=== PATIENT | female | born 1995 | race Caucasian/White ===

== ENCOUNTER 2020-06-06 20:43 | Emergency (ER) | payer MEDICARE, MEDICAID ==
[~2020-06-06] VITALS: Ht 165.1 cm; Wt 70.5 kg
[~2020-06-06 20:43] MED LIST: CLON-527 PO
[2020-06-06] MEDS ORDERED: normal saline 1000ML IV soln IVB ONE (21:20)
[2020-06-06] MEDS ORDERED: magnesium 2GM in 50ml NS 50 ML IV ONE (21:20)
[2020-06-06 22:03] LABS: CLARITY,URINE CLEAR (Clear); COLOR,URINE YELLOW (Yellow); GLUCOSE, URINE NEGATIVE (Neg); KETONES,URINE NEGATIVE (Neg); LEUKOCYTE ESTERASE ,URINE TRACE (Neg); NITRITES, URINE NEGATIVE (Neg); OCCULT BLOOD,URINE NEGATIVE (Neg); PROTEIN,URINE NEGATIVE (Neg); UROBILINOGEN,URINE 0.2 E.U/dL (0.2-1.0)
[2020-06-06 22:06] LABS: BASOPHILS # (AUTO) 0.1 X10'3 (0-0.2); BASOPHILS % (AUTO) 0.7 % (0-1); EOSINOPHILS % (AUTO) 0.4 % (0-6); HEMATOCRIT 41.3 % (35.0-45.0); HEMOGLOBIN 14.2 g/dl (12.0-16.0); LYMPHOCYTES # (AUTO) 2.3 X10'3 (1.1-4.8); LYMPHOCYTES % (AUTO) 28.5 % (21-51); MEAN CORPUSCULAR HEMOGLOBIN 32.2 PG (27.0-31.0); MEAN CORPUSCULAR HGB CONC 34.5 g/dL (33.0-36.5); MEAN CORPUSCULAR VOLUME 93.2 FL (78-98); MEAN PLATELET VOLUME 7.2 FL (7.4-10.4); MONOCYTES # (AUTO) 0.6 X10'3 (0-0.9); NEUTROPHILS # (AUTO) 5.2 X10'3 (1.8-7.7); NEUTROPHILS % (AUTO) 63.4 % (42-75); PLATELET COUNT 395 X10'3 (140-440); RED BLOOD COUNT 4.43 X10'6 (4.20-5.60); RED CELL DISTRIBUTION WIDTH 12.8 % (11.5-14.5); WHITE BLOOD COUNT 8.2 X10'3 (4.5-11.0)
[2020-06-06 22:09] LABS: URINE AMPHETAMINE SCREEN NEGATIVE (Neg); URINE BARBITUATE SCREEN NEGATIVE (Neg); URINE BENZODIAZEPINES SCREEN NEGATIVE (Neg); URINE CANNABINOID SCREEN NEGATIVE (Neg); URINE COCAINE SCREEN NEGATIVE (Neg); URINE METHADONE SCREEN NEGATIVE (Neg); URINE OPIATE SCREEN NEGATIVE (Neg); URINE PHENCYCLIDINE SCREEN NEGATIVE (Neg)
[2020-06-06 22:10] LABS: UA COLLECTION TYPE NON-SPECIFIED
[2020-06-06 22:13] LABS: WBC,URINE 0-4 /HPF (0-4)
[2020-06-06 22:14] LABS: BACTERIA,URINE 2+ /HPF (Neg); RBC,URINE NONE SEEN /HPF (0-2); SQUAMOUS EPITHELIAL CELL,UR MANY /LPF (FEW)
--- NOTE | 2020-06-06 22:16 | NUR ---
PTS FATHER NOW AT BEDSIDE. REPORTS WHEN THEY FOUND HER SHE WAS LYING FACE DOWN ON THE CARPET AND IN A TWISTED CLINCHED POSITION AND HE TURNED HER OVER. PT REPORTS SHE HAS NOT TAKEN HER EFFEXOR IN OVER A WEEKS, FETHER REPORTS HX OF HASHIMOTOS SIDEASE. HAS NOT TAKEN HER THYROID MEDS IS 5 DAYS AND HAS NOT TAKEN ZYPREXA IN 1-1.5 MONTHS. PT IS ANSWERING QUESTIONS APPROPRIATELY. FATHER REPORTS SHE HAS A SEIZURE DISORDER AND WAS BEING TREATED BY DR. SANTIAGO, NEUROLOGY, BUT HAS NOT BEEN SEEN BY NEUROLOGY SINCE THIS MD STOPPED PRACTICING A FEW YRS AGO. DOES NOT TAKE CURRENT SEIQURE MEDS. CURRENT VSS. PT LYING ON THE GURNEY AND NODDING HER HEAD CONINUOUSLY.
[2020-06-06 22:22] LABS: ALANINE AMINOTRANSFERASE 32 U/L (12-78); ALBUMIN 4.1 G/DL (3.4-5.0); ALBUMIN/GLOBULIN RATIO 1.1 (1.1-1.5); ALKALINE PHOSPHATASE 85 IU/L (46-116); ANION GAP 10 (8-16); ASPARTATE AMINO TRANSFERASE 22 U/L (10-37); BILIRUBIN,TOTAL 0.4 MG/DL (0.1-1.0); BLOOD UREA NITROGEN 6 MG/DL (7-18); BUN/CREATININE RATIO 7.6 (6.6-38.0); CALCIUM 9.5 MG/DL (8.5-10.1); CHLORIDE 105 MMOL/L (99-107); CREATININE 0.79 MG/DL (0.40-0.90); GLUCOSE 96 MG/DL (70-104); POTASSIUM 3.5 MMOL/L (3.5-5.1); SODIUM 140 MMOL/L (135-145); TOTAL CARBON DIOXIDE 24.6 MMOL/L (24-32); TOTAL PROTEIN 7.9 G/DL (6.4-8.2); eGFR 89 ML/MIN
[2020-06-06 22:23] LABS: CREATINE KINASE 224 U/L (26-192); ETHANOL 0.191 GM/DL (0.0-0.010)
[2020-06-06 23:03] LABS: MAGNESIUM 2.3 MG/DL (1.5-2.4)
[2020-06-07 00:16] VITALS: BP 100/64
== END 2020-06-07 | disposition home or self-care (01) ==
LOC: ER 20:43
DX: F10.129 Alcohol abuse with intoxication, unspecified (principal); G43.909 Migraine, unspecified, not intractable, without status migrainosus; E03.9 Hypothyroidism, unspecified; F32.9 Major depressive disorder, single episode, unspecified; Z86.69 Personal history of other diseases of the nervous system and sense organs; Z88.0 Allergy status to penicillin; Z91.012 Allergy to eggs; Z91.011 Allergy to milk products; Z91.010 Allergy to peanuts; Z91.018 Allergy to other foods; Z79.899 Other long term (current) drug therapy; Y90.0 Blood alcohol level of less than 20 mg/100 ml
CPT/HCPCS: 36415; 71045; 80053; 80305; 80320; 81001; 82550; 82948; 83735; 85025; 93005; 99285; J7030; 96360

== ENCOUNTER 2020-11-02 22:48 | Emergency (ER) | payer MEDICARE, MEDICAID ==
[~2020-11-02] VITALS: Ht 157.5 cm; Wt 71.4 kg
[2020-11-02] MEDS ORDERED: BENZ0.5T43 PO (23:16)
[2020-11-02 23:38] LABS: BASOPHILS # (AUTO) 0.2 X10'3 (0-0.2); BASOPHILS % (AUTO) 1.4 % (0-1); EOSINOPHILS % (AUTO) 0.2 % (0-6); HEMATOCRIT 37.4 % (35.0-45.0); HEMOGLOBIN 12.8 g/dl (12.0-16.0); LYMPHOCYTES # (AUTO) 1.7 X10'3 (1.1-4.8); LYMPHOCYTES % (AUTO) 15.8 % (21-51); MEAN CORPUSCULAR HEMOGLOBIN 31.9 PG (27.0-31.0); MEAN CORPUSCULAR HGB CONC 34.2 g/dL (33.0-36.5); MEAN CORPUSCULAR VOLUME 93.3 FL (78-98); MEAN PLATELET VOLUME 7.4 FL (7.4-10.4); MONOCYTES # (AUTO) 0.9 X10'3 (0-0.9); MONOCYTES % (AUTO) 7.8 % (2-12); NEUTROPHILS # (AUTO) 8.3 X10'3 (1.8-7.7); NEUTROPHILS % (AUTO) 74.8 % (42-75); PLATELET COUNT 394 X10'3 (140-440); RED BLOOD COUNT 4.01 X10'6 (4.20-5.60); RED CELL DISTRIBUTION WIDTH 12.1 % (11.5-14.5)
[2020-11-02 23:53] LABS: ALANINE AMINOTRANSFERASE 18 U/L (12-78); ALBUMIN 4.1 G/DL (3.4-5.0); ALBUMIN/GLOBULIN RATIO 1.4 (1.1-1.5); ALKALINE PHOSPHATASE 60 IU/L (46-116); ANION GAP 10 (8-16); ASPARTATE AMINO TRANSFERASE 21 U/L (10-37); BILIRUBIN,TOTAL 0.5 MG/DL (0.1-1.0); BLOOD UREA NITROGEN 5 MG/DL (7-18); BUN/CREATININE RATIO 5.9 (6.6-38.0); CALCIUM 8.8 MG/DL (8.5-10.1); CHLORIDE 103 MMOL/L (99-107); CREATININE 0.85 MG/DL (0.40-0.90); GLUCOSE 104 MG/DL (70-104); SODIUM 137 MMOL/L (135-145); TOTAL CARBON DIOXIDE 23.8 MMOL/L (24-32); TOTAL PROTEIN 7.1 G/DL (6.4-8.2); eGFR 81 ML/MIN
--- NOTE | 2020-11-02 23:54 | NUR ---
Patient arrived in overflow from triage. Pt has flat affect and is very slow to answer questions. 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 Pt also stated that she did not want her medical information or condition discussed with her parents. Pt was cooperative with changing clothes to scrubs and having her belongings taken and stored.
[2020-11-03] MEDS ORDERED: potassium Cl 20 mEq SR tablet PO ONE (00:10)
[2020-11-03] MEDS ORDERED: magnesium oxide 400mg tablet PO ONE (00:20)
--- NOTE | 2020-11-03 03:29 | NUR ---
Pt is up, walking slowly and quietly around her bed. Often she stops and stares at the wall.
[2020-11-03] MEDS ORDERED: diphenhydrAMINE 25mg capsule PO ONE (06:05)
[2020-11-03] MEDS ORDERED: OLANZapine 2.5MG tablet PO ONE (06:05)
[2020-11-03] MEDS ORDERED: OLANZapine 2.5MG tablet PO SCH (06:05)
[2020-11-03] MEDS ORDERED: OLANZAPINE 5 MG TABLET PO ONE (06:06)
[2020-11-03 06:18] LABS: URINE HCG NEGATIVE (NEG)
[2020-11-03 06:31] LABS: URINE AMPHETAMINE SCREEN NEGATIVE (Neg); URINE BARBITUATE SCREEN NEGATIVE (Neg); URINE BENZODIAZEPINES SCREEN NEGATIVE (Neg); URINE CANNABINOID SCREEN NEGATIVE (Neg); URINE COCAINE SCREEN NEGATIVE (Neg); URINE METHADONE SCREEN NEGATIVE (Neg); URINE OPIATE SCREEN NEGATIVE (Neg); URINE PHENCYCLIDINE SCREEN NEGATIVE (Neg)
[2020-11-03 06:44] LABS: CLARITY,URINE SLIGHTLY CLOUDY (Clear); COLOR,URINE YELLOW (Yellow); GLUCOSE, URINE NEGATIVE (Neg); KETONES,URINE 15 mg/dl (Neg); LEUKOCYTE ESTERASE ,URINE NEGATIVE (Neg); NITRITES, URINE NEGATIVE (Neg); OCCULT BLOOD,URINE TRACE-LYSED (Neg); PROTEIN,URINE NEGATIVE (Neg); UROBILINOGEN,URINE 0.2 E.U/dL (0.2-1.0)
[2020-11-03 07:07] LABS: UA COLLECTION TYPE NON-SPECIFIED
[2020-11-03 07:09] LABS: MUCUS STRANDS NONE SEEN /LPF (Neg); RBC,URINE NONE SEEN /HPF (0-2); SQUAMOUS EPITHELIAL CELL,UR MODERATE /LPF (FEW); WBC,URINE 0-4 /HPF (0-4)
[2020-11-03 07:10] LABS: BACTERIA,URINE FEW /HPF (Neg)
--- NOTE | 2020-11-03 07:10 | NUR ---
PT REMAINS CALM AND COOPERATIVE AND CURRENTLY SITTING QUIETLY ON BED.
--- NOTE | 2020-11-03 07:22 | NUR ---
PACKET FAXED TO [facility]
--- NOTE | 2020-11-03 09:30 | NUR ---
REPORT FROM SONDRA RN PT HAD BEEN UP MOST THE NIGHT AND HARDLY SLEPT. PT RECEIVED ZYPREXA AND BENADRYL THIS AM AND IS NOW RESTING WITH EYES CLOSED, EFFORTLESS RESPIRATIONS OBSERVED.
--- NOTE | 2020-11-03 13:00 | NUR ---
PT WAS SEEN BY [facility], PT WAS PLACED ON [id number]
--- NOTE | 2020-11-03 19:44 | NUR ---
The patient is resting on her bed and is pending discharge to [facility]. She is aware of the plan and is agreeable to that plan. The patient's father is at the bedside.
[2020-11-03 21:36] VITALS: BP 102/56
[2020-11-03] MEDS ORDERED: NO HOME MEDS (21:48)
== END 2020-11-03 21:39 ==
LOC: ER 22:49
DX: R45.851 Suicidal ideations (principal); Z20.822 Contact with and (suspected) exposure to COVID-19; F32.9 Major depressive disorder, single episode, unspecified; E87.6 Hypokalemia; F23 Brief psychotic disorder; G43.909 Migraine, unspecified, not intractable, without status migrainosus; E03.9 Hypothyroidism, unspecified; Z86.69 Personal history of other diseases of the nervous system and sense organs; Z88.0 Allergy status to penicillin; Z91.012 Allergy to eggs; Z91.011 Allergy to milk products; Z91.010 Allergy to peanuts; Z91.018 Allergy to other foods; Z79.899 Other long term (current) drug therapy
CPT/HCPCS: 36415; 80053; 80305; 81001; 81025; 83735; 84443; 85025; 87635; 99285; C9803; Q0163

== ENCOUNTER 2020-11-10 21:14 | Emergency (ER) | payer MEDICARE, MEDICAID ==
[~2020-11-10] VITALS: Ht 157.5 cm; Wt 63.6 kg
[~2020-11-10 21:14] MED LIST changes: +CARI3CAP PO; -CLON-527 PO; +FLUV50TA3 PO; +NICO-668 BC; +NO HOME MEDS; +QUET100T34 PO
[2020-11-10 21:33] VITALS: BP 119/80
--- NOTE | 2020-11-11 01:34 | NUR ---
I CALLED HER MOM, SHE IS ON HER WAY TO GET HER.
== END 2020-11-10 23:00 | disposition home or self-care (01) ==
LOC: ER 21:16
DX: Z02.89 Encounter for other administrative examinations (principal); F32.9 Major depressive disorder, single episode, unspecified; G43.909 Migraine, unspecified, not intractable, without status migrainosus; E03.9 Hypothyroidism, unspecified; Z86.69 Personal history of other diseases of the nervous system and sense organs; Z91.012 Allergy to eggs; Z91.011 Allergy to milk products; Z91.010 Allergy to peanuts; Z91.018 Allergy to other foods; Z79.899 Other long term (current) drug therapy
CPT/HCPCS: 99283

== ENCOUNTER 2022-10-31 14:59 | Emergency (ER) | payer MEDICARE, MEDICAID ==
[~2022-10-31] VITALS: Ht 167.6 cm; Wt 89.4 kg
[~2022-10-31 14:59] MED LIST changes: +FLUV50TA24 PO; -FLUV50TA3 PO
[2022-10-31 15:07] VITALS: TEMP 97.7
[2022-10-31] MEDS ORDERED: famotidine/PF 10 mg/ml inj IV ONE (16:05)
[2022-10-31] MEDS ORDERED: diphenhydrAMINE 50 mg/ml inj IV ONE (16:05)
[2022-10-31] MEDS ORDERED: methylPREDNISolone sod succ 125mg/2ml vial IV ONE (16:05)
[2022-10-31] MEDS ORDERED: normal saline 1000ml 1,000 ML IV ONE (16:05)
[2022-10-31] MEDS ORDERED: TRIA15CR61 TOP (16:28)
[2022-10-31 16:41] LABS: CLARITY,URINE CLOUDY (Clear); COLOR,URINE YELLOW (Yellow); GLUCOSE, URINE NEGATIVE (Neg); KETONES,URINE NEGATIVE (Neg); LEUKOCYTE ESTERASE ,URINE LARGE (Neg); NITRITES, URINE NEGATIVE (Neg); OCCULT BLOOD,URINE TRACE-INTACT (Neg); PH,URINE 6.5 (4.8-8.0); PROTEIN,URINE NEGATIVE (Neg); UROBILINOGEN,URINE 0.2 E.U/dL (0.2-1.0)
[2022-10-31 16:42] LABS: URINE HCG NEGATIVE (NEG)
[2022-10-31 16:48] VITALS: BP 124/69; PULSE 95; RESP 18; O2SAT 96
[2022-10-31 16:48] LABS: UA COLLECTION TYPE CLN CATCH MIDSTREAM
[2022-10-31 16:52] LABS: BACTERIA,URINE 1+ /HPF (Neg); SQUAMOUS EPITHELIAL CELL,UR MANY /LPF (FEW); WBC,URINE 30-50 /HPF (0-4)
== END 2022-10-31 17:53 | disposition home or self-care (01) ==
LOC: ER 14:59
DX: T78.40XA Allergy, unspecified, initial encounter (principal); L50.8 Other urticaria; R30.0 Dysuria; G43.909 Migraine, unspecified, not intractable, without status migrainosus; E03.9 Hypothyroidism, unspecified; F32.9 Major depressive disorder, single episode, unspecified; Z86.69 Personal history of other diseases of the nervous system and sense organs; Z91.012 Allergy to eggs; Z88.0 Allergy status to penicillin; Z91.010 Allergy to peanuts; Z91.011 Allergy to milk products; Z91.018 Allergy to other foods; Z79.899 Other long term (current) drug therapy; X58.XXXA Exposure to other specified factors, initial encounter
CPT/HCPCS: 81001; 81025; 96374; 96375; 99284; J1200; J2930; J3490; J7030

== ENCOUNTER 2022-11-21 17:51 | Emergency (ER) | payer MEDICARE, MEDICAID ==
[~2022-11-21 17:51] MED LIST changes: +TRIA15CR61 TOP
== END 2022-11-21 20:06 | disposition left against medical advice (07) ==
LOC: ER 17:52
DX: Z00.8 Encounter for other general examination (principal); Z53.21 Procedure and treatment not carried out due to patient leaving prior to being seen by health care provider

== ENCOUNTER 2024-01-11 22:15 | Emergency (ER) | payer MEDICARE, MEDICAID ==
[~2024-01-11] VITALS: Ht 160 cm; Wt 88.3 kg
[~2024-01-11 22:15] MED LIST changes: -TRIA15CR61 TOP
[2024-01-11] MEDS: traZODone 50mg tablet PO STA (23:42)
[2024-01-11] MEDS ORDERED: TRAZ-251 PO (23:53)
[2024-01-12 00:08] VITALS: BP 131/79; PULSE 76; RESP 17; TEMP 97.8; O2SAT 95
== END 2024-01-12 00:09 | disposition home or self-care (01) ==
LOC: ER 22:16
DX: Z76.0 Encounter for issue of repeat prescription (principal); G47.00 Insomnia, unspecified; G43.909 Migraine, unspecified, not intractable, without status migrainosus; E03.9 Hypothyroidism, unspecified; F32.A Depression, unspecified; F20.9 Schizophrenia, unspecified; F84.0 Autistic disorder; Z91.012 Allergy to eggs; Z88.0 Allergy status to penicillin; Z79.899 Other long term (current) drug therapy
CPT/HCPCS: 99283